=== PATIENT | female | born 1980 | race Native Hawaiian/Other Pacific Islander ===

== ENCOUNTER 2019-07-04 07:20 | Outpatient (CLI) | payer OTHER ==
--- NOTE | 2019-07-04 15:44 | Ultrasound Report ---
Reason: RUQ PAIN Procedure Date: 07/04/2019 Accession Number: [id number] / [id number] Procedure: US - Abdomen Limited CPT Code: Final Report FULL RESULT: EXAM: Abdomen Limited DATE: 07/04/2019 7:52 AM CLINICAL HISTORY: Right upper quadrant pain, intermittent. COMPARISON: None. TECHNIQUE: Real-time scanning was performed with static images obtained. FINDINGS: The liver is normal in size measuring 14 cm in length. The echotexture is increased consistent with fatty infiltration. No discrete masses identified. There is a single mobile stone within the lumen of the gallbladder measuring 1.3 cm. There is no wall thickening, pericholecystic fluid or ductal dilation. The right kidney is normal measuring 11 cm in sagittal dimension. IMPRESSION: 1. Fatty liver. 2. Single mobile gallstone measuring 1.3 cm. No secondary changes of cholecystitis or ductal obstruction.
== END 2019-07-04 07:21 | disposition home or self-care (01) ==
LOC: DI 07:20
PROVIDERS: ATTEND Internal Medicine
DX: K80.20 Calculus of gallbladder without cholecystitis without obstruction (principal); K76.0 Fatty (change of) liver, not elsewhere classified
CPT/HCPCS: 76705

== ENCOUNTER 2020-05-20 12:19 | Outpatient (CLI) | payer OTHER ==
--- NOTE | 2020-05-20 14:24 | Ultrasound Report ---
PROCEDURE: Abdomen Limited INDICATIONS: RUQ PAIN TECHNIQUE: Real-time focused scanning was performed of the abdomen, with image documentation. COMPARISON: 07/04/2019 abdominal ultrasound. FINDINGS: Reported right upper quadrant pain intermittently for 4 days. The liver is normal in size but diffusely echogenic consistent with fatty infiltration. No intrahepatic biliary distention is fou nd. The gallbladder wall is normal in thickness at 2.8 mm and there is a single stone within the gall bladder neck which is fixed in position, without mobility during change in patient's position. No adj acent pericholecystic free fluid is found. The common duct is normal in caliber at 4.8 mm. The right kidney appears normal, free of hydronephrosis and nephrolithiasis. The visualized pancreas also appea rs normal. IMPRESSION: Fixed gallstone at the gallbladder neck, as the likely cause for intermittent biliary colic. Multiple attempts have been made to reach the ordering health care provider without success at this time. Voi cemail message for the provider has been left. Emergent surgical findings are not identified at this time but there is a risk of progression to definite acute cholecystitis from the current symptomatolo gy. Elective surgical consultation may be warranted. Nuclear medicine hepatobiliary scan could be uti lized to determine whether the cystic duct is patent at this time. Reviewed by: Galdino Farmer MD on 05/20/2020 2:23 PM PDT Approved by: Galdino Farmer MD on 05/20/2020 2:23 PM PDT Station ID: [id number]
== END 2020-05-20 12:20 | disposition home or self-care (01) ==
LOC: DI 12:19
PROVIDERS: ATTEND Internal Medicine
DX: K80.20 Calculus of gallbladder without cholecystitis without obstruction (principal)
CPT/HCPCS: 76705

== ENCOUNTER 2020-05-21 15:31 | Outpatient (CLI) | payer OTHER ==
[2020-05-21 16:05] LABS: ALBUMIN 4.6 g/dL (3.2-5.5); ALBUMIN/GLOBULIN RATIO 1.2 (1.0-2.2); BILIRUBIN,TOTAL 0.6 mg/dL (0.2-1.0); CALCIUM 9.1 mg/dL (8.5-10.3); CREATININE 0.7 mg/dL (0.4-1.0); TOTAL PROTEIN 8.3 g/dL (6.7-8.2)
== END 2020-05-21 15:32 | disposition home or self-care (01) ==
LOC: LAB 15:31
PROVIDERS: ATTEND Surgery
DX: Z01.812 Encounter for preprocedural laboratory examination (principal); K81.2 Acute cholecystitis with chronic cholecystitis; Z20.828 Contact with and (suspected) exposure to other viral communicable diseases
CPT/HCPCS: 36415; 80053

== ENCOUNTER 2020-05-23 10:46 | Day surgery (SDC) | payer OTHER ==
[2020-05-23] MEDS ORDERED: SUGAMMADEX 200 MG/2 ML VIAL IVP ONE (10:47)
[2020-05-23] MEDS ORDERED: LACTATED RINGERS 1,000 ML IV ONE ×2 (11:03→13:48)
[2020-05-23 11:13] LABS: HCG UR QUAL NEGATIVE
[2020-05-23] MEDS ORDERED: BUPIVACAINE 0.5% PF 30 ML VIAL ONE (11:26)
--- NOTE | 2020-05-23 11:42 | ANESTHESIA ---
Pre-Anesthesia VS, & Labs - Diagnosis acute cholecystits - Procedure laparoscopic cholecystectomy Vital Signs: Temp Pulse Resp BP Pulse Ox 36.9 C 94 16 138/97 H 96 05/23/20 11:11 05/23/20 11:11 05/23/20 11:11 05/23/20 11:11 05/23/20 11:11 Height: 5 ft 1 in Weight (kg): 73.5 kg Body Mass Index: 30.6 BMI Classification: Obese - NPO >8 hours - Is Patient ?: No Home Medications and Allergies Home Medications: Ambulatory Orders Acetaminophen [Tylenol] 650 mg PO Q6H PRN 05/22/20 Cetirizine [ZyrTEC] 10 mg PO DAILY PRN 05/22/20 Fluticasone [Flonase] 1 sprays RADHA DAILY 05/22/20 Ibuprofen [Motrin] 600 mg PO Q6H PRN 05/22/20 Levonorgestrel 20 Mcg/24H [Mirena] 1 each IY DAILY 05/22/20 Multivitamin 1 each PO DAILY 05/22/20 amLODIPine [Norvasc] 5 mg PO DAILY 05/22/20 Acetaminophen [Tylenol] 650 mg PO Q6H PRN 05/22/20 Cetirizine [ZyrTEC] 10 mg PO DAILY PRN 05/22/20 Fluticasone [Flonase] 1 sprays RADHA DAILY 05/22/20 Ibuprofen [Motrin] 600 mg PO Q6H PRN 05/22/20 Levonorgestrel 20 Mcg/24H [Mirena] 1 each IY DAILY 05/22/20 Multivitamin 1 each PO DAILY 05/22/20 amLODIPine [Norvasc] 5 mg PO DAILY 05/22/20 Allergies/Adverse Reactions: Allergies Allergy/AdvReac Type Severity Reaction Status Date / Time No Known Drug Allergies Allergy Verified 05/23/20 11:24 Anes History & Medical History - Anesthetic History Anesthesia Complications: reports: No previous complications Family history of Anesthesia Complications: Denies Family history of Malignant Hyperthermia: Denies - Medical History Cardiovascular: reports: Hypertension Pulmonary: reports: None Gastrointestinal: reports: Cholelithiasis Urinary: reports: None Musculoskeletal: reports: None Endocrine/Autoimmune: reports: None Skin: reports: Eczema Exam General: Alert Dental: WNL Mouth Opening: Greater than 4 Fingerbreadths Mallampati classification: I Thyromental Distance: greater than 6 cm Respiratory: Lungs clear Cardiovascular: Regular rate Plan Anesthesia Type: General Consent for Procedure(s) Verified and Reviewed: Yes Code Status: Attempt Resuscitation ASA classification: 2-Mild systemic disease Is this case an emergency?: No
[2020-05-23] MEDS ORDERED: DEXAMETHASONE 4 MG/ML VIAL IVP ONE (11:45)
[2020-05-23] MEDS ORDERED: ONDANSETRON 4 MG/2 ML VIAL IVP ONE (11:45)
[2020-05-23] MEDS ORDERED: PROPOFOL 200 MG/20 ML VIAL IVP ONE (11:45)
[2020-05-23] MEDS ORDERED: ROCURONIUM 50 MG/5 ML VIAL IVP ONE (11:45)
[2020-05-23] MEDS ORDERED: LIDOCAINE-MPF 2% 5 ML VIAL IM ONE (11:45)
[2020-05-23] MEDS ORDERED: fentaNYL 100 MCG/2 ML VIAL IVP ONE (11:45)
[2020-05-23] MEDS ORDERED: BUPIVACAINE 0.5% PF 30 ML VIAL INFIL ONE ×2 (12:55)
[2020-05-23] MEDS ORDERED: ONDANSETRON 4 MG/2 ML VIAL IVP PRN ×2 (13:50→13:51)
[2020-05-23] MEDS ORDERED: HYDROmorphone 0.5 MG/0.5 ML SYRINGE IVP PRN ×2 (13:50→13:51)
[2020-05-23] MEDS ORDERED: HYDROcod/ACETAM 5/325 MG TABLET PO PRN (13:50)
[2020-05-23] MEDS ORDERED: ePHEDrine 50 MG/ML VIAL IVP PRN (13:51)
[2020-05-23] MEDS ORDERED: ACETAMINOPHEN 1,000 MG/100 ML 100 ML IV ONE (13:51)
[2020-05-23] MEDS ORDERED: ATROPINE ABBOJECT 1 MG/10 ML SYRINGE IVP PRN (13:51)
[2020-05-23] MEDS ORDERED: fentaNYL 100 MCG/2 ML VIAL IVP PRN (13:51)
[2020-05-23] MEDS ORDERED: KETOROLAC 15 MG/ML VIAL IVP ONE (13:51)
[2020-05-23] MEDS ORDERED: NALOXONE 0.4 MG/ML VIAL IVP PRN (13:51)
--- NOTE | 2020-05-23 13:53 | ANESTHESIA POST OP EVALUATION ---
Anesthesia Post Eval - Post Anesthesia Eval Vitals: Last Vital Signs Temp 36.9 C 05/23/20 11:11 Pulse 94 05/23/20 11:11 Resp 16 05/23/20 11:11 BP 138/97 H 05/23/20 11:11 Pulse Ox 96 05/23/20 11:11 CV Function Including HR & BP: positive: Stable Pain Control: positive: Satisfactory Nausea & Vomiting: positive: Negative Mental Status: positive: Baseline Respiratory Status: Airway Patent Hydration Status: Satisfactory Anesthesia Complications: positive: None
--- NOTE | 2020-05-23 13:57 | OPERATIVE REPORT ---
Operative Report - General Procedure Date: 05/23/20 Planned Procedure: Laparoscoipc cholecystectomy Pre-Op Diagnosis: Symptomatic cholelithiasis - biliary colic Procedure Performed: Laparoscopic cholecystectomy Post Op Diagnosis: Smae with hydrops - Procedure Note Primary Surgeon: Raza Mays MD Anesthesia Provider: Dario Anesthesia Technique: General ET tube, Local (30 mL 1/2% sensorcaine) IV Fluids (mL): 800 Estimated Blood Loss (mL): 5 Drain/Tube Type: Other (None.) Findings: Distended gallbladder. Complications: None. - Other Other Information/Narrative: Unable to dictate into this field - typed report to follow.
[2020-05-23] MEDS ORDERED: LACTATED RINGERS 1,000 ML IV SCH (14:00)
[2020-05-23] MEDS ORDERED: KETOROLAC 15 MG/ML VIAL ONE (14:13)
[2020-05-23 14:52] VITALS: BP 124/79
== END 2020-05-23 10:47 | disposition home or self-care (01) ==
LOC: SDS 10:46
PROVIDERS: ATTEND Surgery
PROC: 0FT44ZZ Resection of Gallbladder, Percutaneous Endoscopic Approach (ICD-10-PCS; principal; 2020-05-23 12:00)
DX: K80.13 Calculus of gallbladder with acute and chronic cholecystitis with obstruction (principal); I10 Essential (primary) hypertension; K82.1 Hydrops of gallbladder; E66.9 Obesity, unspecified; Z68.30 Body mass index [BMI] 30.0-30.9, adult
CPT/HCPCS: 47562; 81025; A9270; J7120

== ENCOUNTER 2021-07-06 14:36 | Outpatient (CLI) | payer OTHER ==
--- NOTE | 2021-07-07 14:08 | Mammography Report ---
BILATERAL DIGITAL SCREENING MAMMOGRAM 3D/2D: 07/06/2021 CLINICAL: Baseline exam. Routine screening. No prior exams were available for comparison. The tissue of both breasts is heterogeneously dense. T his may lower the sensitivity of mammography. No significant masses, calcifications, or other findings are seen in either breast. IMPRESSION: NEGATIVE There is no mammographic evidence of malignancy. A 1 year screening mammogram is recommended. This exam was interpreted at Station ID: [id number]. NOTE: For mammograms, a report in lay terms will be sent to the patient. Approximately 15% of breast malignancies will not be visualized mammographically. In the management of a palpable breast mass, a negative mammogram must not discourage biopsy of a clinically suspicious lesion. Electronically Signed By: Isreal Parra M.D., [email or web address]:07/06/2021 15:21:39 ACR BI-RADS Category 1: Negative 3341F PARENCHYMAL PATTERN: (D) - The breast(s) demonstrate(s) heterogeneously dense fibroglandular paryary tracy. BI-RADS CATEGORY: (1) - 1 RECOMMENDATION: (ANNUAL) - Recommend routine annual screening mammography. [id number] 1 year screening LATERALITY: (B)
== END 2021-07-06 14:37 | disposition home or self-care (01) ==
LOC: DI.N 14:36
PROVIDERS: ATTEND Internal Medicine
DX: Z12.31 Encounter for screening mammogram for malignant neoplasm of breast (principal)